=== PATIENT | female | born 1985 | race Caucasian/White ===

== ENCOUNTER 2016-06-06 03:11 | Emergency (ER) | payer MEDICAID, OTHER ==
[~2016-06-06] VITALS: Ht 165.1 cm; Wt 90.0 kg
[2016-06-06 03:13] VITALS: BP 126/64; PULSE 94; RESP 18; TEMP 97.6; O2SAT 97
[2016-06-06 04:48] VITALS: BP 139/90; PULSE 91; RESP 18; TEMP 98.4; O2SAT 99
[2016-06-06 04:56] VITALS: BP 130/90; PULSE 91; RESP 18; O2SAT 99
[2016-06-06] MEDS ORDERED: ALUMINUM/MAGNESIUM/SIMETH 30 ML CUP PO ONE (05:00)
[2016-06-06] MEDS ORDERED: SODIUM CHLORIDE 0.9% FLUSH 10 ML FLUSH IV FLUSH PRN (05:00)
[2016-06-06] MEDS ORDERED: LIDOCAINE VISCOUS 2% SOLN 15 ML UDC PO ONE (05:00)
[2016-06-06] MEDS ORDERED: PANTOPRAZOLE SODIUM 40 MG VIAL IVP ONE (05:00)
--- NOTE | 2016-06-06 05:10 | PD ---
HPI Chief Complaint: Abdominal Pain Time Seen by Provider: 04:47 Travel History International Travel<30 days: No Contact w/Intl Traveler<30days: No Traveled to known affect area: No History of Present Illness HPI Patient is a 30-year-old female with history of cholecystectomy and umbilical hernia here with complaint of abdominal pain. Patient states that she has chronic abdominal pain from her hernia, but over the last 3 days she has had pain more in the epigastric region minutes post-to the umbilical region. No nausea or vomiting. Pain is mild, crampy. She denies any history of gastritis , peptic ulcer disease. She does not have a surgeon locally with which to follow-up for her hernia. She denies any urinary or bowel symptoms, no fevers or chills. PFSH Past Medical History Diminished Hearing: No Inguinal Hernia: Yes Tetanus Vaccination: Unknown Influenza Vaccination: No ?: Not Past Surgical History Abdominal Aneurysm Repair: Yes (GALLBLADDER) Abdominal Surgery: Yes (GALLBLADDER SURGERY) Gynecologic Surgery: Yes (HYSTERECTOMY) Social History Alcohol Use: No Tobacco Use: Yes Substance Use: No Allergies-Medications (Allergen,Severity, Reaction): Coded Allergies: Imitrex (Verified Allergy, Severe, Hives, 06/06/16) Macrobid (Verified Allergy, Severe, Hives, 06/06/16) Penicillin (Verified Allergy, Severe, Hives, 06/06/16) Tylenol #3 (Verified Allergy, Intermediate, Nausea/Vomiting, 06/06/16) Valium (Verified Allergy, Intermediate, Nausea/Vomiting, 06/06/16) Reported Meds & Prescriptions Reported Meds & Active Scripts Active Reported Prilosec (Omeprazole) 20 Mg Cap 20 Mg PO DAILY Zocor (Simvastatin) 40 Mg Tab 40 Mg PO DAILY Review of Systems Except as stated in HPI: all other systems reviewed are Neg Physical Exam Narrative GENERAL: Well-appearing female in no acute distress SKIN: Focused skin assessment warm/dry. HEAD: Normocephalic. EYES: No scleral icterus. No injection or drainage. ENT: Mucous membranes pink and moist. NECK: Supple CARDIOVASCULAR: Regular rate and rhythm. No murmur appreciated. RESPIRATORY: No accessory muscle use. Clear to auscultation. Breath sounds equal bilaterally. GASTROINTESTINAL: Abdomen soft, epigastric abdominal tenderness to palpation without rebound or guarding. Mild periumbilical pain with easily reducible. Periumbilical hernia MUSCULOSKELETAL: Normal gait NEUROLOGICAL: Awake and alert. Normal speech. PSYCHIATRIC: Appropriate mood and affect; insight and judgment normal. Data Data Last Documented VS Vital Signs Date Time Temp Pulse Resp B/P Pulse Ox O2 Delivery O2 Flow Rate FiO2 06/06/16 06:07 98.4 86 18 120/56 99 Room Air Orders Complete Blood Count With Diff (06/06/16 04:52) Comprehensive Metabolic Panel (06/06/16 04:52) Lipase (06/06/16 04:52) Iv Access Insert/Monitor (06/06/16 04:52) Ecg Monitoring (06/06/16 04:52) Oximetry (06/06/16 04:52) Pantoprazole Inj (Protonix Inj) (06/06/16 05:00) Sodium Chloride 0.9% Flush (Ns Flush) (06/06/16 05:00) Al-Mag Hy-Si 40-40-4 Mg/Ml Liq (Mag-Al P (06/06/16 05:00) Lidocaine 2% Viscous (Xylocaine 2% Visco (06/06/16 05:00) Ketorolac Inj (Toradol Inj) (06/06/16 06:00) Labs Laboratory Tests Test 06/06/16 05:00 White Blood Count 13.4 TH/MM3 Red Blood Count 4.43 MIL/MM3 Hemoglobin 13.2 GM/DL Hematocrit 40.0 % Mean Corpuscular Volume 90.3 FL Mean Corpuscular Hemoglobin 29.9 PG Mean Corpuscular Hemoglobin 33.1 % Concent Red Cell Distribution Width 13.4 % Platelet Count 249 TH/MM3 Mean Platelet Volume 8.6 FL Neutrophils (%) (Auto) 58.3 % Lymphocytes (%) (Auto) 32.2 % Monocytes (%) (Auto) 8.2 % Eosinophils (%) (Auto) 0.8 % Basophils (%) (Auto) 0.5 % Neutrophils # (Auto) 7.8 TH/MM3 Lymphocytes # (Auto) 4.3 TH/MM3 Monocytes # (Auto) 1.1 TH/MM3 Eosinophils # (Auto) 0.1 TH/MM3 Basophils # (Auto) 0.1 TH/MM3 CBC Comment DIFF FINAL Differential Comment Sodium Level 142 MEQ/L Potassium Level 3.9 MEQ/L Chloride Level 106 MEQ/L Carbon Dioxide Level 29.2 MEQ/L Anion Gap 7 MEQ/L Blood Urea Nitrogen 12 MG/DL Creatinine 0.77 MG/DL Estimat Glomerular Filtration 87 ML/MIN Rate Random Glucose 70 MG/DL Calcium Level 8.9 MG/DL Total Bilirubin 0.2 MG/DL Aspartate Amino Transf 21 U/L (AST/SGOT) Alanine Aminotransferase 23 U/L (ALT/SGPT) Alkaline Phosphatase 98 U/L Total Protein 7.8 GM/DL Albumin 3.8 GM/DL Lipase 202 U/L [facility] Medical Decision Making Medical Screen Exam Complete: Yes Emergency Medical Condition: Yes Medical Record Reviewed: Yes Differential Diagnosis 30-year-old female here with complaint of 3 days of epigastric abdominal pain with known periumbilical hernia. Differential includes hernia, gastritis, pancreatitis, hepatobiliary pathology, peptic ulcer disease. Abdominal examination is benign making peritoneal pathology unlikely. Narrative Course Patient placed on monitor, IV established and blood obtained. Given IV PPI and GI cocktail, Toradol. CBC, CMP, lipase unremarkable. Patient felt improved after the above therapy will be discharged home with Zantac for possible gastritis and outpatient general surgery referral for umbilical hernia repair. Diagnosis Primary Impression: Umbilical hernia Qualified Code: K42.9 - Umbilical hernia without obstruction and without gangrene Additional Impression: Gastritis Qualified Code: K29.00 - Acute gastritis without hemorrhage, unspecified gastritis type Referrals: Mac Corrales MD call for appointment General Surgeon call for appointment Additional Instructions: Call general surgeon for follow-up for umbilical hernia repair. Med/Other Pt SpecificInfo: Prescription(s) given Scripts Ranitidine (Zantac)150 Mg [id number] Mg PO BID #60 TAB Ref 0 Prov:Vera Hillman MD 06/06/16 Disposition: 01 DISCHARGE HOME Condition: Stable Vera Hillman MD Jun 06, 2016 05:10
[2016-06-06 05:21] LABS: AUTOMATED NEUTROPHIL # 7.8 TH/MM3 (1.8-7.7); BASOPHIL # 0.1 TH/MM3 (0-0.2); BASOPHIL % 0.5 % (0.0-2.0); EOSINOPHIL # 0.1 TH/MM3 (0-0.4); EOSINOPHIL % 0.8 % (0.0-4.0); HEMO FLAGS DIFF FINAL; LYMPH % 32.2 % (9.0-44.0); LYMPHOCYTE # 4.3 TH/MM3 (1.0-4.8); MEAN CELL VOLUME 90.3 FL (80.0-100.0); MEAN CORPUSCULAR HEMOGLOBIN 29.9 PG (27.0-34.0); MEAN CORPUSCULAR HGB CONC 33.1 % (32.0-36.0); MONO % 8.2 % (0.0-8.0); NEUT % 58.3 % (16.0-70.0); PLATELET COUNT 249 TH/MM3 (150-450); RED BLOOD COUNT 4.43 MIL/MM3 (4.00-5.30); RED CELL DISTRIBUTION WIDTH 13.4 % (11.6-17.2); WHITE BLOOD COUNT 13.4 TH/MM3 (4.0-11.0)
[2016-06-06] MEDS ORDERED: ZOCO40TA PO (05:32)
[2016-06-06] MEDS ORDERED: PRIL20CA9 PO (05:33)
[2016-06-06] MEDS ORDERED: KETOROLAC TROMETHAMINE 30 MG/ML (IVP) VIAL IVP ONE (06:00)
[2016-06-06 06:07] VITALS: BP 120/56; PULSE 86; RESP 18; TEMP 98.4; O2SAT 99
[2016-06-06 06:15] LABS: ALKALINE PHOSPHATASE 98 U/L (45-117); ALT (GPT) 23 U/L (10-53); TOTAL BILIRUBIN ADULT 0.2 MG/DL (0.2-1.0)
[2016-06-06 06:19] LABS: ANION GAP 7 MEQ/L (5-15); AST (GOT) 21 U/L (15-37); BICARBONATE 29.2 MEQ/L (21.0-32.0); BLOOD UREA NITROGEN 12 MG/DL (7-18); CHLORIDE 106 MEQ/L (98-107); GLOMERULAR FILTRATION RATE 87 ML/MIN (>89); POTASSIUM 3.9 MEQ/L (3.5-5.1); SODIUM (NA) 142 MEQ/L (136-145)
[2016-06-06] MEDS ORDERED: ZANT150T2 PO (06:24)
[2016-06-06 06:26] VITALS: BP 127/75
== END 2016-06-06 06:26 | disposition home or self-care (01) ==
LOC: NEPE 03:11
DX: K42.9 Umbilical hernia without obstruction or gangrene (principal); K29.00 Acute gastritis without bleeding; Z72.0 Tobacco use
CPT/HCPCS: 80053; 83690; 85025; 96374; 96375; 99284; C9113; J1885

== ENCOUNTER 2016-07-28 02:47 | Emergency (ER) | payer MEDICAID ==
[~2016-07-28] VITALS: Ht 165.1 cm; Wt 90.0 kg
[~2016-07-28 02:47] MED LIST: PRIL20CA9 PO; ZANT150T2 PO; ZOCO40TA PO
[2016-07-28 02:50] VITALS: BP 134/74; PULSE 87; RESP 16; TEMP 97.8; O2SAT 99
[2016-07-28] MEDS ORDERED: PERC2.5T PO (02:58)
[2016-07-28] MEDS ORDERED: LYRI200C PO (02:58)
[2016-07-28] MEDS ORDERED: SODIUM CHLOR 0.9% 1000 ML INJ 1,000 ML IV SCH (03:23)
[2016-07-28] MEDS ORDERED: MORPHINE SULFATE 4 MG/ML INJ IV PUSH ONE (03:30)
[2016-07-28] MEDS ORDERED: SODIUM CHLORIDE 0.9% FLUSH 10 ML FLUSH IV FLUSH PRN (03:30)
[2016-07-28] MEDS ORDERED: ONDANSETRON HCL 4 MG/2 ML VIAL IVP ONE (03:30)
--- NOTE | 2016-07-28 03:40 | PD ---
HPI Chief Complaint: Abdominal Pain Time Seen by Provider: 03:14 Travel History International Travel<30 days: No Contact w/Intl Traveler<30days: No Traveled to known affect area: No History of Present Illness HPI Patient is a 30 year old female who presents to ER with complaints of abdominal pain. Patient reports that 1 month ago, she had a hernia repair by Dr Martinez at [facility]. Patient reports that since then, she has been having constant abdominal pain. Patient reports that for the past week, her pain has moved to her right lower quadrant. Reports that she has been having increased pain to her right lower quadrant, reports no nausea or vomiting with symptoms. She reports no fevers, reports chills. Patient reports that she has no vaginal discharge or bleeding, reports history of hysterectomy in the past secondary to endometriosis. Denies dysuria, urinary urgency or frequency. PFSH Past Medical History Diminished Hearing: No Inguinal Hernia: Yes Tetanus Vaccination: Unknown Influenza Vaccination: No ?: Not Past Surgical History Abdominal Aneurysm Repair: Yes (GALLBLADDER) Abdominal Surgery: Yes (GALLBLADDER SURGERY) Gynecologic Surgery: Yes (HYSTERECTOMY) Hysterectomy: Yes Social History Alcohol Use: No Tobacco Use: Yes Substance Use: No Allergies-Medications (Allergen,Severity, Reaction): Coded Allergies: Imitrex (Verified Allergy, Severe, Hives, 07/28/16) Macrobid (Verified Allergy, Severe, Hives, 07/28/16) Penicillin (Verified Allergy, Severe, Hives, 07/28/16) Tylenol #3 (Verified Allergy, Intermediate, Nausea/Vomiting, 07/28/16) Valium (Verified Allergy, Intermediate, Nausea/Vomiting, 07/28/16) Reported Meds & Prescriptions Reported Meds & Active Scripts Active Reported Percocet (Oxycodone-Acetaminophen) 2.5-325 mg Tab 1 Tab PO Q4H PRN Lyrica (Pregabalin) 200 Mg Cap 200 Mg PO BID Review of Systems Except as stated in HPI: all other systems reviewed are Neg General / Constitutional: No: Fever, Chills Gastrointestinal: Positive: Abdominal Pain, No: Nausea, Vomiting, Diarrhea Physical Exam Narrative GENERAL: NAD, nontoxic SKIN: Focused skin assessment warm/dry. HEAD: Atraumatic. Normocephalic. EYES: Pupils equal and round. No scleral icterus. No injection or drainage. ENT: No nasal bleeding or discharge. Mucous membranes pink and moist. NECK: Trachea midline. No JVD. CARDIOVASCULAR: Regular rate and rhythm. No murmur appreciated. RESPIRATORY: No accessory muscle use. Clear to auscultation. Breath sounds equal bilaterally. GASTROINTESTINAL: Abdomen soft, mild rlq tenderness with no rebound or guarding on exam, nondistended. Hepatic and splenic margins not palpable. MUSCULOSKELETAL: No obvious deformities. No clubbing. No cyanosis. No edema. NEUROLOGICAL: Awake and alert. No obvious cranial nerve deficits. Motor grossly within normal limits. Normal speech. PSYCHIATRIC: Appropriate mood and affect; insight and judgment normal. Data Data Last Documented VS Vital Signs Date Time Temp Pulse Resp B/P Pulse Ox O2 Delivery O2 Flow Rate FiO2 07/28/16 02:56 16 07/28/16 02:50 97.8 87 134/74 99 Room Air Orders Complete Blood Count With Diff (07/28/16 03:23) Comprehensive Metabolic Panel (07/28/16 03:23) Lipase (07/28/16 03:23) Prothrombin Time / Inr (Pt) (07/28/16 03:23) Act Partial Throm Time (Ptt) (07/28/16 03:23) Urinalysis - C+S If Indicated (07/28/16 03:23) Ct Abd/Pel W Iv Contrast(Rout) (07/28/16 03:23) Iv Access Insert/Monitor (07/28/16 03:23) Morphine Inj (Morphine Inj) (07/28/16 03:30) Ondansetron Inj (Zofran Inj) (07/28/16 03:30) Sodium Chlor 0.9% 1000 Ml Inj (Ns 1000 M (07/28/16 03:23) Sodium Chloride 0.9% Flush (Ns Flush) (07/28/16 03:30) Iohexol 350 Inj (Omnipaque 350 Inj) (07/28/16 04:07) Ketorolac Inj (Toradol Inj) (07/28/16 04:45) Labs Laboratory Tests Test 07/28/16 03:00 White Blood Count 11.0 TH/MM3 Red Blood Count 4.39 MIL/MM3 Hemoglobin 13.2 GM/DL Hematocrit 39.0 % Mean Corpuscular Volume 89.0 FL Mean Corpuscular Hemoglobin 30.0 PG Mean Corpuscular Hemoglobin 33.7 % Concent Red Cell Distribution Width 13.0 % Platelet Count 268 TH/MM3 Mean Platelet Volume 8.2 FL Neutrophils (%) (Auto) 47.0 % Lymphocytes (%) (Auto) 40.3 % Monocytes (%) (Auto) 10.7 % Eosinophils (%) (Auto) 1.5 % Basophils (%) (Auto) 0.5 % Neutrophils # (Auto) 5.2 TH/MM3 Lymphocytes # (Auto) 4.4 TH/MM3 Monocytes # (Auto) 1.2 TH/MM3 Eosinophils # (Auto) 0.2 TH/MM3 Basophils # (Auto) 0.1 TH/MM3 CBC Comment DIFF FINAL Differential Comment Prothrombin Time 10.2 SEC Prothromb Time International 0.9 RATIO Ratio Activated Partial 27.8 SEC Thromboplast Time Sodium Level 140 MEQ/L Potassium Level 3.6 MEQ/L Chloride Level 104 MEQ/L Carbon Dioxide Level 27.6 MEQ/L Anion Gap 8 MEQ/L Blood Urea Nitrogen 12 MG/DL Creatinine 0.94 MG/DL Estimat Glomerular Filtration 69 ML/MIN Rate Random Glucose 89 MG/DL Calcium Level 8.9 MG/DL Total Bilirubin 0.3 MG/DL Aspartate Amino Transf 27 U/L (AST/SGOT) Alanine Aminotransferase 44 U/L (ALT/SGPT) Alkaline Phosphatase 97 U/L Total Protein 8.1 GM/DL Albumin 4.1 GM/DL Lipase 220 U/L [facility] Medical Decision Making Medical Screen Exam Complete: Yes Emergency Medical Condition: Yes Interpretation(s) Vital Signs Date Time Temp Pulse Resp B/P Pulse Ox O2 Delivery O2 Flow Rate FiO2 07/28/16 02:56 16 07/28/16 02:50 97.8 87 16 134/74 99 Room Air Differential Diagnosis Differential includes appendicitis, colitis, constipation, small bowel obstruction, ovarian cyst, UTI Narrative Course Patient is a 30-year-old female who presents to emergency room with complaints of abdominal pain. One month ago, she did have a hernia repair by a surgeon at [facility]. Reports that she has been constant abdominal pain since her surgery. She did follow up with her surgeon and was told that this pain is normal and is secondary to postoperative healing. Patient reports that for the past week, her pain has moved her right lower quadrant. Patient reports that she has been having constant pain which is more severe tonight to her right lower quadrant. Patient with no fevers, reports chills. Patient reports no nausea or vomiting, denies any diarrhea or constipation. Patient here for evaluation of right lower quadrant abdominal pain. On evaluation, patient has tenderness to right lower quadrant, lab work including CT abdomen pelvis ordered to evaluate for abdominal pain. IV fluids as well as pain medications ordered. Laboratory Tests Test 07/28/16 03:00 White Blood Count 11.0 TH/MM3 (4.0-11.0) Red Blood Count 4.39 MIL/MM3 (4.00-5.30) Hemoglobin 13.2 GM/DL (11.6-15.3) Hematocrit 39.0 % (35.0-46.0) Mean Corpuscular Volume 89.0 FL (80.0-100.0) Mean Corpuscular Hemoglobin 30.0 PG (27.0-34.0) Mean Corpuscular Hemoglobin 33.7 % Concent (32.0-36.0) Red Cell Distribution Width 13.0 % (11.6-17.2) Platelet Count 268 TH/MM3 (150-450) Mean Platelet Volume 8.2 FL (7.0-11.0) Neutrophils (%) (Auto) 47.0 % (16.0-70.0) Lymphocytes (%) (Auto) 40.3 % (9.0-44.0) Monocytes (%) (Auto) 10.7 % (0.0-8.0) Eosinophils (%) (Auto) 1.5 % (0.0-4.0) Basophils (%) (Auto) 0.5 % (0.0-2.0) Neutrophils # (Auto) 5.2 TH/MM3 (1.8-7.7) Lymphocytes # (Auto) 4.4 TH/MM3 (1.0-4.8) Monocytes # (Auto) 1.2 TH/MM3 (0-0.9) Eosinophils # (Auto) 0.2 TH/MM3 (0-0.4) Basophils # (Auto) 0.1 TH/MM3 (0-0.2) CBC Comment DIFF FINAL Differential Comment Prothrombin Time 10.2 SEC (9.8-11.6) Prothromb Time International 0.9 RATIO Ratio Activated Partial 27.8 SEC Thromboplast Time (24.3-30.1) Sodium Level 140 MEQ/L (136-145) Potassium Level 3.6 MEQ/L (3.5-5.1) Chloride Level 104 MEQ/L (98-107) Carbon Dioxide Level 27.6 MEQ/L (21.0-32.0) Anion Gap 8 MEQ/L (5-15) Blood Urea Nitrogen 12 MG/DL (7-18) Creatinine 0.94 MG/DL (0.50-1.00) Estimat Glomerular Filtration 69 ML/MIN (>89) Rate Random Glucose 89 MG/DL (74-106) Calcium Level 8.9 MG/DL (8.5-10.1) Total Bilirubin 0.3 MG/DL (0.2-1.0) Aspartate Amino Transf 27 U/L (15-37) (AST/SGOT) Alanine Aminotransferase 44 U/L (10-53) (ALT/SGPT) Alkaline Phosphatase 97 U/L (45-117) Total Protein 8.1 GM/DL (6.4-8.2) Albumin 4.1 GM/DL (3.4-5.0) Lipase 220 U/L (73-393) Last Impressions Abdomen/Pelvis CT 07/28/16 0323 Signed Impressions: Service Date/Time: July 03:58 - CONCLUSION: Normal examination status post cholecystectomy and ventral hernia repair. Very small left fat-containing inguinal hernia. Ludin Cabrera MD copies of pt's ct given to patient, signs and symptoms of acute abdomen reviewed with patient in detail. she will follow up her surgeon and will return to ER as needed. Diagnosis Primary Impression: Abdominal pain Qualified Code: R10.31 - Right lower quadrant abdominal pain Additional Impression: Inguinal hernia Qualified Code: K40.90 - Unilateral inguinal hernia without obstruction or gangrene, recurrence not specified Patient Instructions: General Instructions, Narcotic given in the ED Additional Instructions: Please follow-up with your primary care doctor in 2-3 days Please follow-up with your general surgeon as soon as possible Please return to emergency room if symptoms worsen or progress Please return to emergency room as needed Med/Other Pt SpecificInfo: Prescription(s) given Scripts Tramadol 50 Mg Tab50 Mg PO Q6H PRN (PAIN) #6 TAB Ref 0 Prov:Ruth Perry DO 07/28/16 Disposition: 01 DISCHARGE HOME Condition: Stable Ruth Perry DO July 28, 2016 03:40
[2016-07-28 03:48] LABS: AUTOMATED NEUTROPHIL # 5.2 TH/MM3 (1.8-7.7); BASOPHIL # 0.1 TH/MM3 (0-0.2); BASOPHIL % 0.5 % (0.0-2.0); EOSINOPHIL # 0.2 TH/MM3 (0-0.4); EOSINOPHIL % 1.5 % (0.0-4.0); HEMO FLAGS DIFF FINAL; LYMPH % 40.3 % (9.0-44.0); LYMPHOCYTE # 4.4 TH/MM3 (1.0-4.8); MEAN CORPUSCULAR HGB CONC 33.7 % (32.0-36.0); MONO % 10.7 % (0.0-8.0); PLATELET COUNT 268 TH/MM3 (150-450); RED BLOOD COUNT 4.39 MIL/MM3 (4.00-5.30)
[2016-07-28 03:58] LABS: ALT (GPT) 44 U/L (10-53); ANION GAP 8 MEQ/L (5-15); AST (GOT) 27 U/L (15-37); BICARBONATE 27.6 MEQ/L (21.0-32.0); BLOOD UREA NITROGEN 12 MG/DL (7-18); CHLORIDE 104 MEQ/L (98-107); GLOMERULAR FILTRATION RATE 69 ML/MIN (>89); POTASSIUM 3.6 MEQ/L (3.5-5.1); SODIUM (NA) 140 MEQ/L (136-145)
[2016-07-28 04:00] LABS: ALKALINE PHOSPHATASE 97 U/L (45-117); TOTAL BILIRUBIN ADULT 0.3 MG/DL (0.2-1.0)
[2016-07-28 04:06] LABS: APTT (PATIENT) 27.8 SEC (24.3-30.1); INTERNATIONAL NORMALIZED RATIO 0.9 RATIO; PROTHROMBIN TIME - PATIENT 10.2 SEC (9.8-11.6)
[2016-07-28] MEDS ORDERED: IOHEXOL 350 MG/ML 10 ML VIAL (for RAD DIAG) IV ONE (04:07)
--- NOTE | 2016-07-28 04:42 | RADRPT ---
EXAM DATE/TIME: 07/28/2016 03:58 [facility] COMPARISON: No previous studies available for comparison. INDICATIONS : <<Abdominal pain> IV CONTRAST: <<100>> cc IV ORAL CONTRAST: <<yes> RADIATION DOSE: <<15.63>> CTDIvol (mGy) MEDICAL HISTORY : SURGICAL HISTORY : <Ventral hernia repair. hysterectomy>> ENCOUNTER: <<Initial>> ACUITY: <<Acute> PAIN SCALE: <<Right lower quadrant pain>> LOCATION: <Right lower quadrant abdominal>> TECHNIQUE: Volumetric scanning of the abdomen and pelvis was performed. Using automated exposure control and ad justment of the mA and/or kV according to patient size, radiation dose was kept as low as reasonably achievable to obtain optimal diagnostic quality images. FINDINGS: LOWER LUNGS: The visualized lower lungs are clear. LIVER: Homogeneous density without lesion. There is no dilation of the biliary tree. No calcified gallston es. SPLEEN: Normal size without lesion. PANCREAS: Within normal limits. KIDNEYS: Normal in size and shape. There is no mass, stone or hydronephrosis. ADRENAL GLANDS: Within normal limits. VASCULAR: There is no aortic aneurysm. BOWEL/MESENTERY: The stomach, small bowel, and colon demonstrate no acute abnormality. There is no free intraperitone al air or fluid. ABDOMINAL WALL: Patient's had a ventral hernia repair without evidence of complication or adhesion RETROPERITONEUM: There is no lymphadenopathy. BLADDER: No wall thickening or mass. REPRODUCTIVE: Within normal limits. INGUINAL: There is no lymphadenopathy. Small fat containing hernia less in the inguinal region MUSCULOSKELETAL: Within normal limits for patient age. CONCLUSION: Normal examination status post cholecystectomy and ventral hernia repair. Very small left fat-contain ing inguinal hernia. Ludin Cabrera MD on July 28, 2016 at 4:36 Board Certified Radiologist. This report was verified electronically.
[2016-07-28] MEDS ORDERED: KETOROLAC TROMETHAMINE 30 MG/ML (IVP) VIAL IV PUSH ONE (04:45)
[2016-07-28] MEDS ORDERED: TRAM50TA PO (05:45)
[2016-07-28 05:57] LABS: BLOOD, URINE NEG (NEG); GLUCOSE,URINE NEG (NEG); KETONE, URINE NEG (NEG); NITRITE,URINE NEG (NEG); PH, URINE 5.5 (5.0-8.5); SQUAMOUS EPITHELIAL CELL URINE 1 /hpf (0-5); URINE COLOR YELLOW (YELLW/STRAW)
[2016-07-28 06:09] LABS: COMMENT (UR) CULT NOT INDICATED; CULTURE IF INDICATED CULT NOT INDICATED
== END 2016-07-28 06:26 | disposition home or self-care (01) ==
LOC: NEPC 02:47
DX: R10.31 Right lower quadrant pain (principal); K40.90 Unilateral inguinal hernia, without obstruction or gangrene, not specified as recurrent; Z98.890 Other specified postprocedural states; Z72.0 Tobacco use
CPT/HCPCS: 74177; 80053; 81001; 83690; 85025; 85610; 85730; 96374; 96375; 99285; J1885; J2270; J2405; J7030; Q9967